=== PATIENT | male | born 1945 | race Caucasian/White ===

== ENCOUNTER 2022-04-03 12:38 | Inpatient (IN) ==
[2022-04-03] MEDS ORDERED: VANCOMYCIN INJ 1,500 MG in SODIUM CHLORIDE 0.9% 250 ML IV STA (15:45)
[2022-04-03 15:50] LABS: Basophils % 0.2 % (0.0-0.8); Eosinophils # 0.1 10*3/uL (0.0-0.87); Eosinophils % 1.2 % (0.00-10.9); Hematocrit 35.6 VOL% (42.0-52.0); Hemoglobin 11.2 GM/DL (14.0-18.0); Lymphocytes # 1.7 10*3/uL (1.4-4.0); Lymphocytes % 17.2 % (21.2-54.2); Mean Corpuscular HGB Conc 31.5 GM/DL (32-36); Mean Corpuscular Volume 96.7 FL (87-102); Mean Platelet Volume 9.8 FL (9.6-12.0); Monocytes # 0.7 10*3/uL (0.11-0.8); Monocytes % 6.5 % (1.7-12.7); Neutrophils % 73.9 % (38.7-73.9); Platelet Count 359 T/CUMM (130-400); Red Blood Count 3.68 MC/CUMM (3.8-5.5); Red Cell Distribution Width 14.7 % (9.3-17.3)
[2022-04-03 16:04] LABS: Albumin 2.5 G/DL (3.4-5.0); Bilirubin,Total 0.4 MG/DL (0.20-1.00); Calcium 8.7 MG/DL (8.5-10.1); Osmolality,Calculated 271.2 MOS/KG (273-304); Potassium 4.3 MMOL/L (3.5-5.1); Total Protein 7.4 G/DL (6.4-8.2)
[2022-04-03] MEDS ORDERED: guaiFENesin/DM ER 600-30 MG TABLET PO PRN (17:27)
[2022-04-03] MEDS ORDERED: GLUCAGON 1 MG VIAL IM PRN (17:27)
[2022-04-03] MEDS ORDERED: ACETAMINOPHEN 325 MG TABLET PO PRN (17:27)
[2022-04-03] MEDS ORDERED: hydrALAZINE 20 MG/1 ML VIAL IV PRN (17:27)
[2022-04-03] MEDS ORDERED: DOCUSATE SODIUM 100 MG CAPSULE PO PRN (17:27)
[2022-04-03] MEDS ORDERED: DEXTROSE 10% 250 ML BAG IV PRN (18:01)
[2022-04-03] MEDS: PIPERACILLIN/TAZOBACTAM 3,375 MG in SODIUM CHLORIDE 0.9% 100 ML IV SCH (21:58)
[2022-04-04] MEDS: VANCOMYCIN INJ 1,500 MG in SODIUM CHLORIDE 0.9% 500 ML IV SCH ×2 (03:08→20:11)
[2022-04-04 04:32] LABS: Basophils % 0.2 % (0.0-0.8); Eosinophils # 0.1 10*3/uL (0.0-0.87); Eosinophils % 1.5 % (0.00-10.9); Hematocrit 32.5 VOL% (42.0-52.0); Hemoglobin 10.1 GM/DL (14.0-18.0); Immature Granulocytes % 0.6 %; Immature Granulocytes Absolute 0.06 #; Lymphocytes # 1.9 10*3/uL (1.4-4.0); Lymphocytes % 20.1 % (21.2-54.2); Mean Corpuscular HGB Conc 31.1 GM/DL (32-36); Mean Corpuscular Volume 95.9 FL (87-102); Mean Platelet Volume 9.4 FL (9.6-12.0); Monocytes # 0.7 10*3/uL (0.11-0.8); Monocytes % 7.3 % (1.7-12.7); Neutrophils % 70.3 % (38.7-73.9); Platelet Count 297 T/CUMM (130-400); Red Blood Count 3.39 MC/CUMM (3.8-5.5); Red Cell Distribution Width 14.6 % (9.3-17.3); White Blood Count 9.3 T/CUMM (4-12)
[2022-04-04 05:01] LABS: Calcium 8.5 MG/DL (8.5-10.1); Osmolality,Calculated 268.2 MOS/KG (273-304); Risk Ratio 3.5; Thyroid Stimulating Hormone 0.884 uIU/ml (0.358-3.74); VLDL Cholesterol 25.6 MG/DL
[2022-04-04] MEDS: PANTOPRAZOLE 40 MG TABLET PO SCH (05:38)
[2022-04-04] MEDS: ALBUTEROL/IPRATROPIUM 3 ML NEB RESP TX PRN (08:00)
[2022-04-04] MEDS: PIPERACILLIN/TAZOBACTAM 3,375 MG in SODIUM CHLORIDE 0.9% 100 ML IV SCH ×3 (10:35→22:25)
[2022-04-04] MEDS ORDERED: GLUCAGON 1 MG VIAL IM PRN (13:46)
[2022-04-04] MEDS ORDERED: DEXTROSE 50% 25 GM/50 ML VIAL IV PRN (13:46)
[2022-04-04] MEDS ORDERED: NITROGLYCERIN SL 0.4 MG TABLET SL PRN (13:57)
[2022-04-04] MEDS ORDERED: FUROSEMIDE 40 MG TABLET PO PRN (13:57)
[2022-04-04] MEDS: GABAPENTIN 300 MG CAPSULE PO SCH ×2 (16:03→20:11)
[2022-04-04] MEDS: rOPINIRole 0.25 MG TABLET PO SCH ×2 (16:03→20:11)
[2022-04-04] MEDS: LORazepam 1 MG TABLET PO SCH ×2 (17:50→22:24)
[2022-04-04] MEDS: TAMSULOSIN 0.4 MG CAPSULE PO SCH (20:11)
[2022-04-05 05:29] LABS: Basophils % 0.2 % (0.0-0.8); Eosinophils # 0.1 10*3/uL (0.0-0.87); Eosinophils % 0.9 % (0.00-10.9); Hematocrit 30.4 VOL% (42.0-52.0); Hemoglobin 9.6 GM/DL (14.0-18.0); Immature Granulocytes % 0.7 %; Immature Granulocytes Absolute 0.06 #; Lymphocytes # 1.6 10*3/uL (1.4-4.0); Lymphocytes % 18.7 % (21.2-54.2); Mean Corpuscular HGB Conc 31.6 GM/DL (32-36); Mean Platelet Volume 9.6 FL (9.6-12.0); Monocytes # 0.7 10*3/uL (0.11-0.8); Monocytes % 7.5 % (1.7-12.7); Platelet Count 298 T/CUMM (130-400); Red Cell Distribution Width 14.6 % (9.3-17.3); White Blood Count 8.7 T/CUMM (4-12)
[2022-04-05 05:50] LABS: Calcium 8.2 MG/DL (8.5-10.1); Osmolality,Calculated 271.8 MOS/KG (273-304); Potassium 3.7 MMOL/L (3.5-5.1)
[2022-04-05] MEDS: PIPERACILLIN/TAZOBACTAM 3,375 MG in SODIUM CHLORIDE 0.9% 100 ML IV SCH ×3 (06:07→21:05)
[2022-04-05] MEDS: PANTOPRAZOLE 40 MG TABLET PO SCH (06:08)
[2022-04-05] MEDS ORDERED: propofoL 200 MG/20 ML VIAL IV ONE (09:20)
[2022-04-05] MEDS ORDERED: ETOMIDATE 40 MG/20 ML VIAL IV ONE (09:20)
[2022-04-05] MEDS ORDERED: LIDOCAINE 2% 5 ML VIAL ONE (09:20)
[2022-04-05] MEDS ORDERED: DEXAMETHASONE 4 MG/1 ML VIAL ONE (09:22)
[2022-04-05] MEDS ORDERED: ONDANSETRON 4 MG/2 ML VIAL ONE (09:22)
[2022-04-05] MEDS ORDERED: fentaNYL 100 MCG/2 ML VIAL ONE (09:26)
[2022-04-05] MEDS ORDERED: KETAMINE 500 MG/10 ML VIAL ONE (09:52)
[2022-04-05] MEDS ORDERED: LACTATED RINGERS 1,000 ML IV SCH (10:00)
[2022-04-05] MEDS ORDERED: ESMOLOL 100 MG/10 ML VIAL IV ONE (10:02)
[2022-04-05] MEDS: LORazepam 1 MG TABLET PO SCH ×4 (10:10→20:45)
[2022-04-05] MEDS: VANCOMYCIN INJ 1,500 MG in SODIUM CHLORIDE 0.9% 500 ML IV SCH ×2 (10:10→13:54)
[2022-04-05] MEDS: TAMSULOSIN 0.4 MG CAPSULE PO SCH ×2 (10:10→20:46)
[2022-04-05] MEDS: GABAPENTIN 300 MG CAPSULE PO SCH ×2 (10:10→20:45)
[2022-04-05] MEDS: rOPINIRole 0.25 MG TABLET PO SCH ×2 (10:10→20:45)
[2022-04-05] MEDS ORDERED: METOPROLOL TARTRATE 5 MG/5 ML VIAL IV ONE (10:11)
[2022-04-05] MEDS: METOPROLOL SUCCINATE XL 25 MG TABLET PO SCH ×2 (12:14→20:45)
[2022-04-05] MEDS ORDERED: rOPINIRole 0.25 MG TABLET PO ONE (13:47)
[2022-04-05] MEDS ORDERED: GLUCAGON 1 MG VIAL IM PRN (15:43)
[2022-04-05] MEDS ORDERED: DEXTROSE 10% 250 ML BAG IV PRN (15:46)
[2022-04-05] MEDS: APIXABAN 5 MG TABLET PO SCH (20:46)
[2022-04-05] MEDS: MENTHOL/ZINC OXIDE OINT 71 GM JAR TOP SCH (20:46)
[2022-04-06] MEDS: VANCOMYCIN INJ 1,500 MG in SODIUM CHLORIDE 0.9% 500 ML IV SCH (01:07)
[2022-04-06 05:31] LABS: Basophils % 0.2 % (0.0-0.8); Hematocrit 30.6 VOL% (42.0-52.0); Hemoglobin 9.7 GM/DL (14.0-18.0); Immature Granulocytes Absolute 0.06 #; Lymphocytes # 1.2 10*3/uL (1.4-4.0); Lymphocytes % 20.5 % (21.2-54.2); Mean Corpuscular HGB Conc 31.7 GM/DL (32-36); Mean Corpuscular Volume 96.5 FL (87-102); Mean Platelet Volume 9.8 FL (9.6-12.0); Monocytes # 0.4 10*3/uL (0.11-0.8); Monocytes % 5.9 % (1.7-12.7); Neutrophils % 72.4 % (38.7-73.9); Platelet Count 306 T/CUMM (130-400); Red Blood Count 3.17 MC/CUMM (3.8-5.5); Red Cell Distribution Width 14.6 % (9.3-17.3); White Blood Count 6.1 T/CUMM (4-12)
[2022-04-06 05:45] LABS: Calcium 8.4 MG/DL (8.5-10.1); Osmolality,Calculated 275.7 MOS/KG (273-304); Potassium 4.3 MMOL/L (3.5-5.1)
[2022-04-06] MEDS: PANTOPRAZOLE 40 MG TABLET PO SCH (06:08)
[2022-04-06] MEDS: PIPERACILLIN/TAZOBACTAM 3,375 MG in SODIUM CHLORIDE 0.9% 100 ML IV SCH (06:10)
[2022-04-06] MEDS: ALBUTEROL/IPRATROPIUM 3 ML NEB RESP TX PRN (07:55)
[2022-04-06] MEDS: GABAPENTIN 300 MG CAPSULE PO SCH (08:27)
[2022-04-06] MEDS: TAMSULOSIN 0.4 MG CAPSULE PO SCH (08:27)
[2022-04-06] MEDS: rOPINIRole 0.25 MG TABLET PO SCH (08:27)
[2022-04-06] MEDS: METOPROLOL SUCCINATE XL 25 MG TABLET PO SCH (08:27)
[2022-04-06] MEDS: LORazepam 1 MG TABLET PO SCH ×3 (08:27→16:30)
[2022-04-06] MEDS: MENTHOL/ZINC OXIDE OINT 71 GM JAR TOP SCH (08:28)
[2022-04-06] MEDS: APIXABAN 5 MG TABLET PO SCH (08:28)
[2022-04-06] MEDS ORDERED: SODIUM HYPOCHLORITE 0.25% IRRIG 473 ML BOTTLE TOP SCH (09:30)
[2022-04-06 16:50] VITALS: BP 109/79
== END 2022-04-06 16:52 | disposition home health service (06) | DRG 464 ==
LOC: N.ED 12:38 → SUATTDRO 17:27 → N.5E 17:27 → N.TELES 04-05 11:06
PROVIDERS: ADMIT Emergency Medicine; ATTEND Internal Medicine

== ENCOUNTER 2022-08-06 13:46 | Inpatient (IN) ==
[2022-08-06 16:13] LABS: Basophils % 0.1 % (0.0-0.8); Hematocrit 44.7 VOL% (42.0-52.0); Hemoglobin 14.3 GM/DL (14.0-18.0); Immature Granulocytes % 0.3 %; Immature Granulocytes Absolute 0.02 #; Lymphocytes % 26.4 % (21.2-54.2); Mean Corpuscular Volume 92.4 FL (87-102); Mean Platelet Volume 10.9 FL (9.6-12.0); Monocytes # 0.6 10*3/uL (0.11-0.8); Monocytes % 7.4 % (1.7-12.7); Neutrophils % 65.8 % (38.7-73.9); Platelet Count 152 T/CUMM (130-400); Red Blood Count 4.84 MC/CUMM (3.8-5.5); Red Cell Distribution Width 14.3 % (9.3-17.3); White Blood Count 7.6 T/CUMM (4-12)
[2022-08-06] MEDS ORDERED: PIPERACILLIN/TAZOBACTAM 3,375 MG in SODIUM CHLORIDE 0.9% 100 ML IV STA (16:31)
[2022-08-06] MEDS ORDERED: SODIUM CHLORIDE 0.9% 1,000 ML IV STA (16:31)
[2022-08-06 16:35] LABS: Albumin 2.8 G/DL (3.4-5.0); Bilirubin,Total 0.7 MG/DL (0.20-1.00); Calcium 8.1 MG/DL (8.5-10.1); Osmolality,Calculated 270.2 MOS/KG (273-304); Potassium 3.6 MMOL/L (3.5-5.1); Total Protein 7.1 G/DL (6.4-8.2)
[2022-08-06 16:45] LABS: INR 1.1; PT Patient Result 12.2 SECS (10.1-12.1); Partial Thromboplastin Time 31.4 SECS (23.7-32.9)
[2022-08-06] MEDS ORDERED: ACETAMINOPHEN 325 MG TABLET PO PRN (19:34)
[2022-08-06] MEDS ORDERED: ONDANSETRON 4 MG/2 ML VIAL IV PRN (19:34)
[2022-08-06] MEDS ORDERED: GLUCAGON 1 MG VIAL IM PRN (19:34)
[2022-08-06] MEDS ORDERED: DEXTROSE 10% 250 ML BAG IV PRN (19:34)
[2022-08-06] MEDS ORDERED: VANCOMYCIN INJ 1,000 MG in SODIUM CHLORIDE 0.9% 250 ML IV STA (19:37)
[2022-08-06] MEDS ORDERED: ENOXAPARIN 40 MG/0.4 ML SYRINGE SUBCUT SCH (21:00)
[2022-08-06] MEDS: SODIUM CHLORIDE 0.9% 1,000 ML IV SCH (23:16)
[2022-08-06] MEDS: TAMSULOSIN 0.4 MG CAPSULE PO SCH (23:16)
[2022-08-06] MEDS: rOPINIRole 0.25 MG TABLET PO SCH (23:16)
[2022-08-06] MEDS: MEROPENEM 500 MG in SODIUM CHLORIDE 0.9% 100 ML IV SCH (23:16)
[2022-08-07] MEDS: LORazepam 1 MG TABLET PO PRN (03:28)
[2022-08-07] MEDS: MEROPENEM 500 MG in SODIUM CHLORIDE 0.9% 100 ML IV SCH ×2 (04:28→09:25)
[2022-08-07 05:56] LABS: Hematocrit 41.8 VOL% (42.0-52.0); Hemoglobin 13.3 GM/DL (14.0-18.0); Immature Granulocytes % 0.3 %; Immature Granulocytes Absolute 0.02 #; Mean Corpuscular HGB Conc 31.8 GM/DL (32-36); Mean Corpuscular Volume 92.9 FL (87-102); Mean Platelet Volume 11.4 FL (9.6-12.0); Monocytes # 0.4 10*3/uL (0.11-0.8); Monocytes % 6.2 % (1.7-12.7); Neutrophils % 61.5 % (38.7-73.9); Platelet Count 129 T/CUMM (130-400); Red Cell Distribution Width 14.1 % (9.3-17.3); White Blood Count 6.1 T/CUMM (4-12)
[2022-08-07 06:23] LABS: Albumin 2.5 G/DL (3.4-5.0); Bilirubin,Total 0.6 MG/DL (0.20-1.00); Calcium 8.3 MG/DL (8.5-10.1); Potassium 3.7 MMOL/L (3.5-5.1); Risk Ratio 4.89; Thyroid Stimulating Hormone 1.03 uIU/ml (0.358-3.74); Total Protein 6.7 G/DL (6.4-8.2); VLDL Cholesterol 26.4 MG/DL
[2022-08-07] MEDS: rOPINIRole 0.25 MG TABLET PO SCH ×2 (09:25→20:34)
[2022-08-07] MEDS: PANTOPRAZOLE 40 MG TABLET PO SCH (09:25)
[2022-08-07] MEDS: TAMSULOSIN 0.4 MG CAPSULE PO SCH ×2 (09:25→20:34)
[2022-08-07] MEDS ORDERED: LIDOCAINE 1% 5 ML VIAL ONE (11:24)
[2022-08-07] MEDS ORDERED: LIDOCAINE 2% 5 ML VIAL ONE (11:26)
[2022-08-07] MEDS ORDERED: propofoL 200 MG/20 ML VIAL IV ONE (11:26)
[2022-08-07] MEDS ORDERED: fentaNYL 100 MCG/2 ML VIAL ONE (11:26)
[2022-08-07] MEDS ORDERED: LACTATED RINGERS 1,000 ML IV SCH (12:00)
[2022-08-07] MEDS ORDERED: PHENYLEPHRINE 1 MG/10 ML SYRINGE IV ONE (12:32)
[2022-08-07] MEDS ORDERED: DEXMEDETOMIDINE 200 MCG/2 ML VIAL ONE (12:32)
[2022-08-07] MEDS: CEFEPIME 1,000 MG in SODIUM CHLORIDE 0.9% 100 ML IV SCH ×2 (14:49→22:01)
[2022-08-07] MEDS: SODIUM CHLORIDE 0.9% 1,000 ML IV SCH ×2 (14:49→16:19)
[2022-08-07] MEDS: VANCOMYCIN INJ 1,250 MG in SODIUM CHLORIDE 0.9% 250 ML IV SCH (16:21)
[2022-08-08] MEDS: CEFEPIME 1,000 MG in SODIUM CHLORIDE 0.9% 100 ML IV SCH ×4 (03:05→20:37)
[2022-08-08] MEDS: VANCOMYCIN INJ 1,250 MG in SODIUM CHLORIDE 0.9% 250 ML IV SCH (04:40)
[2022-08-08 05:15] LABS: Basophils % 0.2 % (0.0-0.8); Hemoglobin 12.5 GM/DL (14.0-18.0); Immature Granulocytes % 0.2 %; Immature Granulocytes Absolute 0.01 #; Lymphocytes # 1.9 10*3/uL (1.4-4.0); Lymphocytes % 34.8 % (21.2-54.2); Mean Corpuscular HGB Conc 32.1 GM/DL (32-36); Mean Corpuscular Volume 93.8 FL (87-102); Mean Platelet Volume 11.6 FL (9.6-12.0); Monocytes # 0.4 10*3/uL (0.11-0.8); Monocytes % 6.5 % (1.7-12.7); Neutrophils % 58.3 % (38.7-73.9); Platelet Count 117 T/CUMM (130-400); Red Blood Count 4.16 MC/CUMM (3.8-5.5); Red Cell Distribution Width 14.2 % (9.3-17.3); White Blood Count 5.4 T/CUMM (4-12)
[2022-08-08] MEDS: ZINC OXIDE PASTE 113 GM TUBE TOP SCH ×3 (05:26→20:38)
[2022-08-08 05:31] LABS: Calcium 7.7 MG/DL (8.5-10.1); Potassium 3.8 MMOL/L (3.5-5.1)
[2022-08-08] MEDS: SODIUM CHLORIDE 0.9% 1,000 ML IV SCH ×2 (08:52→12:20)
[2022-08-08] MEDS: TAMSULOSIN 0.4 MG CAPSULE PO SCH ×2 (08:53→20:36)
[2022-08-08] MEDS: PANTOPRAZOLE 40 MG TABLET PO SCH (08:53)
[2022-08-08] MEDS: rOPINIRole 0.25 MG TABLET PO SCH ×2 (08:53→20:36)
[2022-08-08] MEDS: LORazepam 1 MG TABLET PO PRN ×2 (12:28→20:36)
[2022-08-09] MEDS: SODIUM CHLORIDE 0.9% 1,000 ML IV SCH ×4 (02:30→19:29)
[2022-08-09] MEDS: CEFEPIME 1,000 MG in SODIUM CHLORIDE 0.9% 100 ML IV SCH ×4 (02:30→21:13)
[2022-08-09 06:16] LABS: Basophils % 0.2 % (0.0-0.8); Eosinophils % 0.2 % (0.00-10.9); Hematocrit 38.7 VOL% (42.0-52.0); Hemoglobin 12.5 GM/DL (14.0-18.0); Immature Granulocytes % 0.6 %; Immature Granulocytes Absolute 0.03 #; Lymphocytes # 1.7 10*3/uL (1.4-4.0); Mean Corpuscular HGB Conc 32.3 GM/DL (32-36); Mean Corpuscular Volume 91.7 FL (87-102); Mean Platelet Volume 11.7 FL (9.6-12.0); Monocytes # 0.4 10*3/uL (0.11-0.8); Monocytes % 8.1 % (1.7-12.7); Neutrophils % 58.9 % (38.7-73.9); Platelet Count 132 T/CUMM (130-400); Red Blood Count 4.22 MC/CUMM (3.8-5.5); White Blood Count 5.2 T/CUMM (4-12)
[2022-08-09 06:31] LABS: Calcium 8.3 MG/DL (8.5-10.1); Osmolality,Calculated 274.5 MOS/KG (273-304); Potassium 3.5 MMOL/L (3.5-5.1)
[2022-08-09] MEDS: PANTOPRAZOLE 40 MG TABLET PO SCH (09:30)
[2022-08-09] MEDS: rOPINIRole 0.25 MG TABLET PO SCH ×2 (09:30→21:13)
[2022-08-09] MEDS: TAMSULOSIN 0.4 MG CAPSULE PO SCH ×2 (09:30→21:13)
[2022-08-09] MEDS: ZINC OXIDE PASTE 113 GM TUBE TOP SCH ×2 (09:30→21:14)
[2022-08-09] MEDS: LORazepam 1 MG TABLET PO PRN ×2 (09:31→21:13)
[2022-08-09] MEDS: ALBUTEROL/IPRATROPIUM 3 ML NEB RESP TX PRN (11:34)
[2022-08-09] MEDS: METOPROLOL SUCCINATE XL 25 MG TABLET PO SCH (16:08)
[2022-08-09] MEDS: APIXABAN 5 MG TABLET PO SCH (21:13)
[2022-08-10] MEDS: CEFEPIME 1,000 MG in SODIUM CHLORIDE 0.9% 100 ML IV SCH ×3 (03:59→14:45)
[2022-08-10 05:59] LABS: Basophils % 0.2 % (0.0-0.8); Eosinophils % 0.4 % (0.00-10.9); Hematocrit 37.2 VOL% (42.0-52.0); Hemoglobin 11.9 GM/DL (14.0-18.0); Immature Granulocytes % 0.9 %; Immature Granulocytes Absolute 0.05 #; Lymphocytes # 1.4 10*3/uL (1.4-4.0); Lymphocytes % 26.3 % (21.2-54.2); Mean Corpuscular Volume 92.3 FL (87-102); Monocytes # 0.6 10*3/uL (0.11-0.8); Monocytes % 10.4 % (1.7-12.7); Neutrophils % 61.8 % (38.7-73.9); Platelet Count 158 T/CUMM (130-400); Red Blood Count 4.03 MC/CUMM (3.8-5.5); Red Cell Distribution Width 13.9 % (9.3-17.3); White Blood Count 5.5 T/CUMM (4-12)
[2022-08-10 06:25] LABS: Albumin 2.1 G/DL (3.4-5.0); Bilirubin,Total 1.1 MG/DL (0.20-1.00); Osmolality,Calculated 272.7 MOS/KG (273-304); Potassium 3.1 MMOL/L (3.5-5.1); Thyroid Stimulating Hormone 0.948 uIU/ml (0.358-3.74); Total Protein 5.9 G/DL (6.4-8.2)
[2022-08-10] MEDS: rOPINIRole 0.25 MG TABLET PO SCH (08:53)
[2022-08-10] MEDS: APIXABAN 5 MG TABLET PO SCH (08:53)
[2022-08-10] MEDS: METOPROLOL SUCCINATE XL 25 MG TABLET PO SCH (08:53)
[2022-08-10] MEDS: PANTOPRAZOLE 40 MG TABLET PO SCH (08:53)
[2022-08-10] MEDS: ZINC OXIDE PASTE 113 GM TUBE TOP SCH (08:55)
[2022-08-10] MEDS: TAMSULOSIN 0.4 MG CAPSULE PO SCH (08:56)
[2022-08-10 11:21] VITALS: BP 114/80
[2022-08-10] MEDS: ALBUTEROL/IPRATROPIUM 3 ML NEB RESP TX PRN (11:50)
[2022-08-10] MEDS: SODIUM CHLORIDE 0.9% 1,000 ML IV SCH ×2 (14:34→17:08)
== END 2022-08-10 17:13 | DRG 474 ==
LOC: EDUNIT# → EDBD → N.ED 13:46 → N.EDINP 19:33 → N.3E 20:31
PROVIDERS: ADMIT Internal Medicine; ATTEND Internal Medicine

== ENCOUNTER 2022-09-25 10:55 | Inpatient (IN) ==
[2022-09-25] MEDS ORDERED: SODIUM CHLORIDE 0.9% 1,000 ML IV STA ×2 (11:19→13:17)
[2022-09-25 11:27] LABS: Basophils % 0.3 % (0.0-0.8); Eosinophils # 0.2 10*3/uL (0.0-0.87); Eosinophils % 2.3 % (0.00-10.9); Hematocrit 34.1 VOL% (42.0-52.0); Hemoglobin 10.3 GM/DL (14.0-18.0); Immature Granulocytes % 0.5 %; Immature Granulocytes Absolute 0.05 #; Lymphocytes # 2.5 10*3/uL (1.4-4.0); Mean Corpuscular HGB Conc 30.2 GM/DL (32-36); Mean Corpuscular Volume 95.5 FL (87-102); Mean Platelet Volume 9.9 FL (9.6-12.0); Monocytes # 0.7 10*3/uL (0.11-0.8); Monocytes % 7.9 % (1.7-12.7); Platelet Count 363 T/CUMM (130-400); Red Blood Count 3.57 MC/CUMM (3.8-5.5); Red Cell Distribution Width 16.8 % (9.3-17.3); White Blood Count 9.4 T/CUMM (4-12)
[2022-09-25 11:33] LABS: INR 1.2; PT Patient Result 12.9 SECS (10.1-12.1)
[2022-09-25 11:40] LABS: Albumin 2.4 G/DL (3.4-5.0); Bilirubin,Total 0.6 MG/DL (0.20-1.00); Calcium 8.5 MG/DL (8.5-10.1); Osmolality,Calculated 273.8 MOS/KG (273-304); Potassium 4.3 MMOL/L (3.5-5.1); Total Protein 7.1 G/DL (6.4-8.2)
[2022-09-25] MEDS ORDERED: PIPERACILLIN/TAZOBACTAM 3,375 MG in SODIUM CHLORIDE 0.9% 100 ML IV STA (11:51)
[2022-09-25] MEDS ORDERED: VANCOMYCIN INJ 1,000 MG in SODIUM CHLORIDE 0.9% 250 ML IV STA (11:51)
[2022-09-25] MEDS ORDERED: ONDANSETRON 4 MG/2 ML VIAL IV PRN (13:18)
[2022-09-25] MEDS ORDERED: KETAMINE 500 MG/10 ML VIAL ONE ×2 (13:22→15:03)
[2022-09-25] MEDS ORDERED: ALBUTEROL/IPRATROPIUM 3 ML NEB RESP TX PRN (13:29)
[2022-09-25] MEDS ORDERED: SODIUM CHLORIDE 0.9% 500 ML IV ONE ×2 (14:49→18:18)
[2022-09-25] MEDS ORDERED: MIDAZOLAM 2 MG/2 ML VIAL ONE (15:03)
[2022-09-25] MEDS ORDERED: propofoL 200 MG/20 ML VIAL IV ONE (15:03)
[2022-09-25] MEDS ORDERED: fentaNYL 100 MCG/2 ML VIAL ONE (15:04)
[2022-09-25] MEDS ORDERED: PHENYLEPHRINE DRIP 20 MG/250 ML PREMIX IV ONE (15:10)
[2022-09-25] MEDS ORDERED: ONDANSETRON 4 MG/2 ML VIAL ONE (15:11)
[2022-09-25] MEDS ORDERED: SEVOFLURANE 1 UNIT/15 MINUTE INH ONE ×2 (15:11→15:58)
[2022-09-25 15:12] LABS: % Iron Saturation 9.1 % (18-50)
[2022-09-25] MEDS ORDERED: SUCCINYLCHOLINE 200 MG/10 ML VIAL ONE (15:12)
[2022-09-25] MEDS ORDERED: ROCURONIUM 50 MG/5 ML VIAL IV ONE (15:12)
[2022-09-25 15:24] LABS: Folate 3.72 NG/ML (5.38-24.0)
[2022-09-25] MEDS ORDERED: ePHEDrine 50 MG/ML VIAL ONE (15:37)
[2022-09-25] MEDS ORDERED: PHENYLEPHRINE 1 MG/10 ML SYRINGE IV ONE (15:39)
[2022-09-25] MEDS ORDERED: ALBUTEROL INHALER 18 GM INH ONE (15:41)
[2022-09-25] MEDS: GABAPENTIN 300 MG CAPSULE PO SCH ×2 (15:57→21:10)
[2022-09-25] MEDS: CYPROHEPTADINE 4 MG TABLET PO SCH ×2 (15:58→21:31)
[2022-09-25] MEDS ORDERED: SODIUM CHLORIDE 0.9% 1,000 ML IV ONE (15:58)
[2022-09-25] MEDS: NICOTINE 21 MG/24 HR PATCH TRANSDERM SCH (17:48)
[2022-09-25 17:53] LABS: Basophils % 0.4 % (0.0-0.8); Eosinophils # 0.2 10*3/uL (0.0-0.87); Eosinophils % 2.7 % (0.00-10.9); Hematocrit 30.3 VOL% (42.0-52.0); Hemoglobin 9.2 GM/DL (14.0-18.0); Immature Granulocytes % 0.5 %; Immature Granulocytes Absolute 0.04 #; Lymphocytes # 1.7 10*3/uL (1.4-4.0); Lymphocytes % 20.4 % (21.2-54.2); Mean Corpuscular HGB Conc 30.4 GM/DL (32-36); Mean Corpuscular Volume 94.7 FL (87-102); Mean Platelet Volume 9.6 FL (9.6-12.0); Monocytes # 0.8 10*3/uL (0.11-0.8); Monocytes % 9.6 % (1.7-12.7); Neutrophils % 66.4 % (38.7-73.9); Platelet Count 303 T/CUMM (130-400); Red Cell Distribution Width 16.7 % (9.3-17.3); White Blood Count 8.2 T/CUMM (4-12)
[2022-09-25] MEDS ORDERED: METOPROLOL SUCCINATE XL 25 MG TABLET PO SCH (21:00)
[2022-09-25] MEDS: PIPERACILLIN/TAZOBACTAM 3,375 MG in SODIUM CHLORIDE 0.9% 100 ML IV SCH (21:09)
[2022-09-25] MEDS: TAMSULOSIN 0.4 MG CAPSULE PO SCH (21:10)
[2022-09-25] MEDS: DOCUSATE SODIUM 100 MG CAPSULE PO SCH (21:10)
[2022-09-25] MEDS: rOPINIRole 0.25 MG TABLET PO SCH (21:10)
[2022-09-25] MEDS: NOREPINEPHRINE 8 MG in SODIUM CHLORIDE 0.9% 242 ML IV PRN (22:03)
[2022-09-25] MEDS: ALBUTEROL/IPRATROPIUM 3 ML NEB RESP TX SCH (23:00)
[2022-09-26] MEDS ORDERED: VANCOMYCIN INJ 1,000 MG in SODIUM CHLORIDE 0.9% 250 ML IV SCH (01:00)
[2022-09-26] MEDS: ALBUTEROL/IPRATROPIUM 3 ML NEB RESP TX SCH ×7 (03:10→23:49)
[2022-09-26 04:35] LABS: Basophils % 0.4 % (0.0-0.8); Eosinophils # 0.2 10*3/uL (0.0-0.87); Eosinophils % 2.8 % (0.00-10.9); Hematocrit 33.6 VOL% (42.0-52.0); Hemoglobin 10.1 GM/DL (14.0-18.0); Immature Granulocytes % 0.6 %; Immature Granulocytes Absolute 0.05 #; Lymphocytes # 2.4 10*3/uL (1.4-4.0); Lymphocytes % 30.3 % (21.2-54.2); Mean Corpuscular HGB Conc 30.1 GM/DL (32-36); Mean Corpuscular Volume 95.5 FL (87-102); Mean Platelet Volume 9.8 FL (9.6-12.0); Monocytes # 0.6 10*3/uL (0.11-0.8); Monocytes % 7.2 % (1.7-12.7); Neutrophils % 58.7 % (38.7-73.9); Platelet Count 353 T/CUMM (130-400); Red Blood Count 3.52 MC/CUMM (3.8-5.5); Red Cell Distribution Width 16.9 % (9.3-17.3); White Blood Count 7.9 T/CUMM (4-12)
[2022-09-26 04:54] LABS: Albumin 2.2 G/DL (3.4-5.0); Bilirubin,Total 0.5 MG/DL (0.20-1.00); Potassium 4.1 MMOL/L (3.5-5.1); Total Protein 5.9 G/DL (6.4-8.2)
[2022-09-26 04:57] LABS: Risk Ratio 4.04; VLDL Cholesterol 20.2 MG/DL
[2022-09-26] MEDS: PIPERACILLIN/TAZOBACTAM 3,375 MG in SODIUM CHLORIDE 0.9% 100 ML IV SCH (06:00)
[2022-09-26] MEDS ORDERED: SODIUM CHLORIDE 0.9% 1,000 ML IV SCH (08:30)
[2022-09-26] MEDS: SODIUM CHLORIDE 0.9% 500 ML IV SCH ×2 (08:34→09:11)
[2022-09-26] MEDS: CYPROHEPTADINE 4 MG TABLET PO SCH ×3 (08:35→20:55)
[2022-09-26] MEDS: rOPINIRole 0.25 MG TABLET PO SCH ×2 (08:35→20:55)
[2022-09-26] MEDS: CHOLECALCIFEROL 5,000 UNIT TABLET PO SCH (08:35)
[2022-09-26] MEDS: NICOTINE 21 MG/24 HR PATCH TRANSDERM SCH ×2 (08:35→09:11)
[2022-09-26] MEDS: CITALOPRAM 20 MG TABLET PO SCH (08:36)
[2022-09-26] MEDS: GABAPENTIN 300 MG CAPSULE PO SCH ×3 (08:36→20:55)
[2022-09-26] MEDS: DOCUSATE SODIUM 100 MG CAPSULE PO SCH ×2 (08:36→20:55)
[2022-09-26] MEDS: TAMSULOSIN 0.4 MG CAPSULE PO SCH ×2 (08:36→20:55)
[2022-09-26] MEDS: PANTOPRAZOLE 40 MG TABLET PO SCH (08:36)
[2022-09-26] MEDS: SODIUM CHLORIDE 0.9% 1,000 ML IV SCH ×3 (08:37→22:47)
[2022-09-26] MEDS ORDERED: FERROUS SULFATE 325 MG TABLET PO SCH (09:00)
[2022-09-26] MEDS ORDERED: lisinopriL 10 MG TABLET PO SCH (09:00)
[2022-09-26] MEDS ORDERED: FOLIC ACID INJ 1 MG in SYRINGE 1 EACH IV SCH (09:00)
[2022-09-26] MEDS ORDERED: FOLIC ACID 1 MG TABLET PO SCH (09:00)
[2022-09-26] MEDS: cefTRIAXone 1,000 MG in SODIUM CHLORIDE 0.9% 100 ML IV SCH (09:22)
[2022-09-26 10:01] LABS: Bilirubin,Urine Negative (Negative); Blood, Urine Small mg/dL (Negative); Glucose,Urine (UA) Negative (Negative); Ketones,Urine Negative (Negative); Mucus,Urine Few /LPF (Occasional); Nitrite,Urine Negative (Negative); Protein,Urine 30 mg/dL (Negative); RBC,Urine 66 /HPF (0-4); Squamous Epithelial Cell,Urine Many /HPF (0-10); Urine Appearance CLOUDY (Clear); Urine Color Amber (Yellow); Urine Specific Gravity 1.013 (1.001-1.035); Urine Urobilinogen < 2.0 eU/dL (<2.0)
[2022-09-26] MEDS: SODIUM HYPOCHLORITE 0.25% IRRIG 473 ML BOTTLE TOP SCH (11:50)
[2022-09-26] MEDS: MORPHINE 2 MG/1 ML SYRINGE IV PRN ×2 (12:47→18:02)
[2022-09-26] MEDS ORDERED: ZINC OXIDE PASTE 113 GM TUBE TOP PRN (14:00)
[2022-09-26] MEDS: FOLIC ACID 1 MG TABLET PO SCH (20:55)
[2022-09-26] MEDS: FERROUS SULFATE 325 MG TABLET PO SCH (20:55)
[2022-09-26] MEDS: NOREPINEPHRINE 8 MG in SODIUM CHLORIDE 0.9% 242 ML IV PRN (22:46)
[2022-09-27] MEDS: ALBUTEROL/IPRATROPIUM 3 ML NEB RESP TX SCH ×5 (03:12→19:35)
[2022-09-27] MEDS: MORPHINE 2 MG/1 ML SYRINGE IV PRN (04:01)
[2022-09-27 04:02] LABS: Basophils % 0.4 % (0.0-0.8); Eosinophils # 0.3 10*3/uL (0.0-0.87); Eosinophils % 3.2 % (0.00-10.9); Hematocrit 29.6 VOL% (42.0-52.0); Hemoglobin 8.9 GM/DL (14.0-18.0); Immature Granulocytes % 0.5 %; Immature Granulocytes Absolute 0.04 #; Lymphocytes # 2.1 10*3/uL (1.4-4.0); Lymphocytes % 25.4 % (21.2-54.2); Mean Corpuscular HGB Conc 30.1 GM/DL (32-36); Mean Corpuscular Volume 96.1 FL (87-102); Monocytes # 0.5 10*3/uL (0.11-0.8); Monocytes % 6.3 % (1.7-12.7); Neutrophils % 64.2 % (38.7-73.9); Platelet Count 272 T/CUMM (130-400); Red Blood Count 3.08 MC/CUMM (3.8-5.5); Red Cell Distribution Width 16.7 % (9.3-17.3); White Blood Count 8.1 T/CUMM (4-12)
[2022-09-27 04:22] LABS: Alanine Aminotransferase 9 U/L (16-61); Albumin 1.8 G/DL (3.4-5.0); Alkaline Phosphatase 53 U/L (45-117); Aspartate Amino Transferase 6 U/L (0-37); Bilirubin,Total < 0.39 MG/DL (0.20-1.00); Blood Urea Nitrogen 8 MG/DL (7-18); Calcium 7.5 MG/DL (8.5-10.1); Carbon Dioxide 27 MMOL/L (21-32); Chloride 109 MMOL/L (98-107); Glucose 119 MG/DL (74-106); Osmolality,Calculated 281.1 MOS/KG (273-304); Potassium 3.6 MMOL/L (3.5-5.1); Sodium 142 MMOL/L (136-145); Total Protein 5.9 G/DL (6.4-8.2)
[2022-09-27] MEDS: SODIUM CHLORIDE 0.9% 1,000 ML IV SCH (07:09)
[2022-09-27] MEDS ORDERED: MAGNESIUM SULF RIDER 4 GM/100 ML PREMIX IV PRN (07:35)
[2022-09-27] MEDS ORDERED: MAGNESIUM SULF RIDER 2 GM/50 ML PREMIX IV PRN (07:35)
[2022-09-27] MEDS ORDERED: KETAMINE 500 MG/10 ML VIAL ONE (07:52)
[2022-09-27] MEDS ORDERED: PHENYLEPHRINE 10 MG/1 ML VIAL IV ONE (07:52)
[2022-09-27] MEDS ORDERED: SODIUM CHLORIDE 0.9% 250 ML IV ONE (07:55)
[2022-09-27] MEDS ORDERED: SUCCINYLCHOLINE 200 MG/10 ML VIAL ONE (07:55)
[2022-09-27] MEDS ORDERED: LIDOCAINE 2% 5 ML VIAL ONE (07:55)
[2022-09-27] MEDS ORDERED: ETOMIDATE 40 MG/20 ML VIAL IV ONE (07:55)
[2022-09-27] MEDS ORDERED: propofoL 200 MG/20 ML VIAL IV ONE (07:55)
[2022-09-27] MEDS ORDERED: ONDANSETRON 4 MG/2 ML VIAL ONE (08:30)
[2022-09-27] MEDS ORDERED: fentaNYL 100 MCG/2 ML VIAL ONE ×2 (08:34→09:04)
[2022-09-27] MEDS ORDERED: SEVOFLURANE 1 UNIT/15 MINUTE INH ONE (09:09)
[2022-09-27] MEDS ORDERED: SODIUM CHLORIDE 0.9% 1,000 ML IV ONE (09:09)
[2022-09-27 09:53] LABS: Basophils % 0.3 % (0.0-0.8); Eosinophils # 0.2 10*3/uL (0.0-0.87); Hematocrit 29.1 VOL% (42.0-52.0); Hemoglobin 8.8 GM/DL (14.0-18.0); Immature Granulocytes % 0.5 %; Immature Granulocytes Absolute 0.04 #; Lymphocytes % 25.8 % (21.2-54.2); Mean Corpuscular HGB Conc 30.2 GM/DL (32-36); Mean Corpuscular Volume 95.4 FL (87-102); Mean Platelet Volume 9.1 FL (9.6-12.0); Monocytes # 0.5 10*3/uL (0.11-0.8); Monocytes % 6.1 % (1.7-12.7); Neutrophils % 64.3 % (38.7-73.9); Platelet Count 276 T/CUMM (130-400); Red Blood Count 3.05 MC/CUMM (3.8-5.5); Red Cell Distribution Width 16.8 % (9.3-17.3); White Blood Count 7.6 T/CUMM (4-12)
[2022-09-27] MEDS: cefTRIAXone 1,000 MG in SODIUM CHLORIDE 0.9% 100 ML IV SCH (10:05)
[2022-09-27] MEDS ORDERED: FUROSEMIDE 20 MG/2 ML VIAL IV ONE (12:50)
[2022-09-27] MEDS: CHOLECALCIFEROL 5,000 UNIT TABLET PO SCH (13:20)
[2022-09-27] MEDS: TAMSULOSIN 0.4 MG CAPSULE PO SCH ×3 (13:20→22:11)
[2022-09-27] MEDS: PANTOPRAZOLE 40 MG TABLET PO SCH (13:20)
[2022-09-27] MEDS: CYPROHEPTADINE 4 MG TABLET PO SCH ×4 (13:20→22:11)
[2022-09-27] MEDS: rOPINIRole 0.25 MG TABLET PO SCH ×3 (13:20→22:11)
[2022-09-27] MEDS: CITALOPRAM 20 MG TABLET PO SCH (13:20)
[2022-09-27] MEDS: FERROUS SULFATE 325 MG TABLET PO SCH ×3 (13:20→22:11)
[2022-09-27] MEDS: DOCUSATE SODIUM 100 MG CAPSULE PO SCH ×3 (13:20→22:11)
[2022-09-27] MEDS: FOLIC ACID 1 MG TABLET PO SCH ×3 (13:20→22:11)
[2022-09-27] MEDS: GABAPENTIN 300 MG CAPSULE PO SCH ×4 (13:20→22:11)
[2022-09-27] MEDS: methylPREDNISolone SOD SUC 40 MG/1 ML VIAL IV SCH ×2 (13:24→21:24)
[2022-09-27] MEDS: ACETAMINOPHEN 325 MG TABLET PO PRN (13:25)
[2022-09-27] MEDS: SODIUM HYPOCHLORITE 0.25% IRRIG 473 ML BOTTLE TOP SCH (13:43)
[2022-09-27] MEDS: LORazepam 1 MG TABLET PO PRN (14:11)
[2022-09-28] MEDS: ALBUTEROL/IPRATROPIUM 3 ML NEB RESP TX SCH ×7 (00:20→23:19)
[2022-09-28 04:42] LABS: Basophils % 0.2 % (0.0-0.8); Hematocrit 31.9 VOL% (42.0-52.0); Hemoglobin 9.9 GM/DL (14.0-18.0); Immature Granulocytes % 0.8 %; Immature Granulocytes Absolute 0.05 #; Lymphocytes # 0.7 10*3/uL (1.4-4.0); Lymphocytes % 10.9 % (21.2-54.2); Mean Corpuscular Volume 93.8 FL (87-102); Mean Platelet Volume 9.7 FL (9.6-12.0); Monocytes # 0.1 10*3/uL (0.11-0.8); Monocytes % 1.7 % (1.7-12.7); Neutrophils % 86.4 % (38.7-73.9); Platelet Count 318 T/CUMM (130-400); Red Cell Distribution Width 16.6 % (9.3-17.3); White Blood Count 6.6 T/CUMM (4-12)
[2022-09-28] MEDS: methylPREDNISolone SOD SUC 40 MG/1 ML VIAL IV SCH ×3 (04:42→21:46)
[2022-09-28 05:04] LABS: Bilirubin,Total 0.5 MG/DL (0.20-1.00); Calcium 8.3 MG/DL (8.5-10.1); Osmolality,Calculated 280.4 MOS/KG (273-304); Phosphorous 3.5 MG/DL (2.5-4.9); Potassium 4.3 MMOL/L (3.5-5.1); Total Protein 6.7 G/DL (6.4-8.2)
[2022-09-28] MEDS: CITALOPRAM 20 MG TABLET PO SCH (08:25)
[2022-09-28] MEDS: FERROUS SULFATE 325 MG TABLET PO SCH ×2 (08:26→21:47)
[2022-09-28] MEDS: DOCUSATE SODIUM 100 MG CAPSULE PO SCH ×2 (08:26→21:46)
[2022-09-28] MEDS: TAMSULOSIN 0.4 MG CAPSULE PO SCH ×2 (08:28→21:46)
[2022-09-28] MEDS: PANTOPRAZOLE 40 MG TABLET PO SCH (08:28)
[2022-09-28] MEDS: rOPINIRole 0.25 MG TABLET PO SCH ×2 (08:28→21:47)
[2022-09-28] MEDS: CHOLECALCIFEROL 5,000 UNIT TABLET PO SCH (08:28)
[2022-09-28] MEDS: FOLIC ACID 1 MG TABLET PO SCH ×2 (08:28→21:46)
[2022-09-28] MEDS: GABAPENTIN 300 MG CAPSULE PO SCH ×3 (08:28→21:47)
[2022-09-28] MEDS: CYPROHEPTADINE 4 MG TABLET PO SCH ×3 (08:28→21:47)
[2022-09-28] MEDS ORDERED: FUROSEMIDE 20 MG/2 ML VIAL IV ONE (08:31)
[2022-09-28] MEDS: SODIUM HYPOCHLORITE 0.25% IRRIG 473 ML BOTTLE TOP SCH (09:01)
[2022-09-28] MEDS: cefTRIAXone 1,000 MG in SODIUM CHLORIDE 0.9% 100 ML IV SCH (09:01)
[2022-09-28] MEDS: AZITHROMYCIN 250 MG TABLET PO SCH (09:32)
[2022-09-28] MEDS: ENOXAPARIN 40 MG/0.4 ML SYRINGE SUBCUT SCH (13:38)
[2022-09-28] MEDS: MORPHINE 2 MG/1 ML SYRINGE IV PRN ×2 (17:12→23:23)
[2022-09-29] MEDS: ALBUTEROL/IPRATROPIUM 3 ML NEB RESP TX SCH ×6 (03:10→23:58)
[2022-09-29] MEDS: methylPREDNISolone SOD SUC 40 MG/1 ML VIAL IV SCH ×2 (06:13→16:18)
[2022-09-29] MEDS: cefTRIAXone 1,000 MG in SODIUM CHLORIDE 0.9% 100 ML IV SCH (08:22)
[2022-09-29] MEDS: AZITHROMYCIN 250 MG TABLET PO SCH (08:23)
[2022-09-29] MEDS: rOPINIRole 0.25 MG TABLET PO SCH ×2 (08:23→20:42)
[2022-09-29] MEDS: CYPROHEPTADINE 4 MG TABLET PO SCH ×3 (08:23→20:44)
[2022-09-29] MEDS: TAMSULOSIN 0.4 MG CAPSULE PO SCH ×2 (08:24→20:40)
[2022-09-29] MEDS: FERROUS SULFATE 325 MG TABLET PO SCH ×2 (08:24→20:40)
[2022-09-29] MEDS: CITALOPRAM 20 MG TABLET PO SCH (08:24)
[2022-09-29] MEDS: FOLIC ACID 1 MG TABLET PO SCH ×2 (08:24→20:40)
[2022-09-29] MEDS: PANTOPRAZOLE 40 MG TABLET PO SCH (08:24)
[2022-09-29] MEDS: DOCUSATE SODIUM 100 MG CAPSULE PO SCH ×2 (08:24→20:40)
[2022-09-29] MEDS: GABAPENTIN 300 MG CAPSULE PO SCH ×3 (08:24→20:40)
[2022-09-29] MEDS: SODIUM HYPOCHLORITE 0.25% IRRIG 473 ML BOTTLE TOP SCH (08:25)
[2022-09-29] MEDS: CHOLECALCIFEROL 5,000 UNIT TABLET PO SCH (08:27)
[2022-09-29] MEDS ORDERED: FUROSEMIDE 40 MG/4 ML VIAL IV ONE (09:18)
[2022-09-29] MEDS: METOPROLOL SUCCINATE XL 25 MG TABLET PO SCH ×2 (09:38→20:43)
[2022-09-29] MEDS: ENOXAPARIN 40 MG/0.4 ML SYRINGE SUBCUT SCH (09:38)
[2022-09-29] MEDS: LORazepam 1 MG TABLET PO PRN (20:41)
[2022-09-30] MEDS: ALBUTEROL/IPRATROPIUM 3 ML NEB RESP TX SCH ×5 (02:37→19:12)
[2022-09-30] MEDS: methylPREDNISolone SOD SUC 40 MG/1 ML VIAL IV SCH ×2 (04:17→16:57)
[2022-09-30 05:51] LABS: Hematocrit 31.8 VOL% (42.0-52.0); Hemoglobin 9.6 GM/DL (14.0-18.0); Immature Granulocytes Absolute 0.08 #; Lymphocytes # 1.6 10*3/uL (1.4-4.0); Lymphocytes % 19.5 % (21.2-54.2); Mean Corpuscular HGB Conc 30.2 GM/DL (32-36); Mean Corpuscular Volume 94.4 FL (87-102); Mean Platelet Volume 10.2 FL (9.6-12.0); Monocytes # 0.6 10*3/uL (0.11-0.8); Monocytes % 6.6 % (1.7-12.7); Neutrophils % 72.9 % (38.7-73.9); Platelet Count 344 T/CUMM (130-400); Red Blood Count 3.37 MC/CUMM (3.8-5.5); Red Cell Distribution Width 16.9 % (9.3-17.3); White Blood Count 8.4 T/CUMM (4-12)
[2022-09-30 06:22] LABS: Calcium 8.4 MG/DL (8.5-10.1); Osmolality,Calculated 285.3 MOS/KG (273-304); Potassium 4.1 MMOL/L (3.5-5.1)
[2022-09-30] MEDS: AZITHROMYCIN 250 MG TABLET PO SCH (09:20)
[2022-09-30] MEDS: METOPROLOL SUCCINATE XL 25 MG TABLET PO SCH ×2 (09:21→21:21)
[2022-09-30] MEDS: rOPINIRole 0.25 MG TABLET PO SCH ×2 (09:21→21:17)
[2022-09-30] MEDS: GABAPENTIN 300 MG CAPSULE PO SCH ×3 (09:21→21:17)
[2022-09-30] MEDS: FOLIC ACID 1 MG TABLET PO SCH ×2 (09:21→21:18)
[2022-09-30] MEDS: TAMSULOSIN 0.4 MG CAPSULE PO SCH ×2 (09:21→21:18)
[2022-09-30] MEDS: CYPROHEPTADINE 4 MG TABLET PO SCH ×3 (09:21→21:17)
[2022-09-30] MEDS: FERROUS SULFATE 325 MG TABLET PO SCH ×2 (09:21→21:18)
[2022-09-30] MEDS: CITALOPRAM 20 MG TABLET PO SCH (09:22)
[2022-09-30] MEDS: CHOLECALCIFEROL 5,000 UNIT TABLET PO SCH (09:22)
[2022-09-30] MEDS: DOCUSATE SODIUM 100 MG CAPSULE PO SCH ×2 (09:22→21:17)
[2022-09-30] MEDS: ENOXAPARIN 40 MG/0.4 ML SYRINGE SUBCUT SCH (09:22)
[2022-09-30] MEDS: cefTRIAXone 1,000 MG in SODIUM CHLORIDE 0.9% 100 ML IV SCH (09:23)
[2022-09-30] MEDS: SODIUM HYPOCHLORITE 0.25% IRRIG 473 ML BOTTLE TOP SCH (09:25)
[2022-09-30] MEDS: AMPICILLIN 500 MG CAPSULE PO SCH ×2 (15:37→21:16)
[2022-10-01] MEDS: ALBUTEROL/IPRATROPIUM 3 ML NEB RESP TX SCH ×7 (00:51→23:39)
[2022-10-01] MEDS: methylPREDNISolone SOD SUC 40 MG/1 ML VIAL IV SCH ×2 (05:00→17:42)
[2022-10-01 05:30] LABS: Basophils % 0.1 % (0.0-0.8); Hematocrit 35.3 VOL% (42.0-52.0); Hemoglobin 10.6 GM/DL (14.0-18.0); Immature Granulocytes % 2.3 %; Lymphocytes # 1.9 10*3/uL (1.4-4.0); Mean Corpuscular Volume 96.2 FL (87-102); Mean Platelet Volume 10.4 FL (9.6-12.0); Monocytes # 0.7 10*3/uL (0.11-0.8); Monocytes % 7.9 % (1.7-12.7); NRBC # 0.05 10*3/uL; Neutrophils % 67.7 % (38.7-73.9); Platelet Count 277 T/CUMM (130-400); Red Blood Count 3.67 MC/CUMM (3.8-5.5); Red Cell Distribution Width 16.7 % (9.3-17.3); White Blood Count 8.8 T/CUMM (4-12)
[2022-10-01 05:46] LABS: Calcium 8.3 MG/DL (8.5-10.1); Osmolality,Calculated 279.7 MOS/KG (273-304); Potassium 4.2 MMOL/L (3.5-5.1)
[2022-10-01] MEDS: rOPINIRole 0.25 MG TABLET PO SCH ×2 (08:31→21:20)
[2022-10-01] MEDS: GABAPENTIN 300 MG CAPSULE PO SCH ×3 (08:31→21:20)
[2022-10-01] MEDS: TAMSULOSIN 0.4 MG CAPSULE PO SCH ×2 (08:31→21:20)
[2022-10-01] MEDS: FERROUS SULFATE 325 MG TABLET PO SCH ×2 (08:32→21:20)
[2022-10-01] MEDS: CYPROHEPTADINE 4 MG TABLET PO SCH ×3 (08:32→21:20)
[2022-10-01] MEDS: CITALOPRAM 20 MG TABLET PO SCH (08:32)
[2022-10-01] MEDS: DOCUSATE SODIUM 100 MG CAPSULE PO SCH ×2 (08:32→21:19)
[2022-10-01] MEDS: METOPROLOL SUCCINATE XL 25 MG TABLET PO SCH ×2 (08:32→21:20)
[2022-10-01] MEDS: FOLIC ACID 1 MG TABLET PO SCH ×2 (08:32→21:20)
[2022-10-01] MEDS: LORazepam 1 MG TABLET PO PRN (08:32)
[2022-10-01] MEDS: CHOLECALCIFEROL 5,000 UNIT TABLET PO SCH (08:32)
[2022-10-01] MEDS: AMPICILLIN 500 MG CAPSULE PO SCH ×3 (10:55→21:19)
[2022-10-01] MEDS: ENOXAPARIN 40 MG/0.4 ML SYRINGE SUBCUT SCH (10:55)
[2022-10-01] MEDS ORDERED: ZIPRASIDONE 20 MG/1 ML VIAL IM ONE (15:51)
[2022-10-01] MEDS ORDERED: LORazepam 2 MG/1 ML VIAL IV PRN (23:08)
[2022-10-02] MEDS: ALBUTEROL/IPRATROPIUM 3 ML NEB RESP TX SCH ×6 (02:57→23:49)
[2022-10-02] MEDS: methylPREDNISolone SOD SUC 40 MG/1 ML VIAL IV SCH ×2 (04:51→16:21)
[2022-10-02 08:03] LABS: Basophils % 0.2 % (0.0-0.8); Eosinophils # 0.2 10*3/uL (0.0-0.87); Eosinophils % 1.4 % (0.00-10.9); Hematocrit 40.8 VOL% (42.0-52.0); Hemoglobin 12.4 GM/DL (14.0-18.0); Immature Granulocytes Absolute 0.23 #; Lymphocytes % 17.6 % (21.2-54.2); Mean Corpuscular HGB Conc 30.4 GM/DL (32-36); Mean Corpuscular Volume 95.6 FL (87-102); Mean Platelet Volume 9.5 FL (9.6-12.0); Monocytes # 0.8 10*3/uL (0.11-0.8); Monocytes % 6.5 % (1.7-12.7); NRBC # 0.07 10*3/uL; Neutrophils % 72.3 % (38.7-73.9); Platelet Count 334 T/CUMM (130-400); Red Blood Count 4.27 MC/CUMM (3.8-5.5); Red Cell Distribution Width 17.7 % (9.3-17.3); White Blood Count 11.6 T/CUMM (4-12)
[2022-10-02 08:29] LABS: Calcium 8.9 MG/DL (8.5-10.1); Osmolality,Calculated 289.8 MOS/KG (273-304); Potassium 3.6 MMOL/L (3.5-5.1)
[2022-10-02] MEDS: ENOXAPARIN 40 MG/0.4 ML SYRINGE SUBCUT SCH (09:07)
[2022-10-02] MEDS: CHOLECALCIFEROL 5,000 UNIT TABLET PO SCH (09:07)
[2022-10-02] MEDS: FOLIC ACID 1 MG TABLET PO SCH ×2 (09:07→21:02)
[2022-10-02] MEDS: CITALOPRAM 20 MG TABLET PO SCH (09:07)
[2022-10-02] MEDS: TAMSULOSIN 0.4 MG CAPSULE PO SCH ×2 (09:07→21:02)
[2022-10-02] MEDS: CYPROHEPTADINE 4 MG TABLET PO SCH ×3 (09:07→21:02)
[2022-10-02] MEDS: FERROUS SULFATE 325 MG TABLET PO SCH ×2 (09:08→21:02)
[2022-10-02] MEDS: FUROSEMIDE 40 MG TABLET PO SCH (09:08)
[2022-10-02] MEDS: METOPROLOL SUCCINATE XL 25 MG TABLET PO SCH ×2 (09:08→21:02)
[2022-10-02] MEDS: GABAPENTIN 300 MG CAPSULE PO SCH ×3 (09:08→21:02)
[2022-10-02] MEDS: rOPINIRole 0.25 MG TABLET PO SCH ×2 (09:08→21:02)
[2022-10-02] MEDS: AMPICILLIN 500 MG CAPSULE PO SCH ×3 (09:08→21:02)
[2022-10-02] MEDS: DOCUSATE SODIUM 100 MG CAPSULE PO SCH ×2 (10:11→21:02)
[2022-10-02] MEDS ORDERED: ENOXAPARIN 40 MG/0.4 ML SYRINGE SUBCUT ONE (13:00)
[2022-10-02] MEDS: ENOXAPARIN 80 MG/0.8 ML SYRINGE SUBCUT SCH (21:04)
[2022-10-03] MEDS: ALBUTEROL/IPRATROPIUM 3 ML NEB RESP TX SCH ×6 (03:21→23:02)
[2022-10-03] MEDS: methylPREDNISolone SOD SUC 40 MG/1 ML VIAL IV SCH ×2 (05:14→17:25)
[2022-10-03 05:17] LABS: Basophils % 0.1 % (0.0-0.8); Eosinophils % 0.3 % (0.00-10.9); Hematocrit 33.8 VOL% (42.0-52.0); Hemoglobin 10.6 GM/DL (14.0-18.0); Immature Granulocytes % 2.3 %; Immature Granulocytes Absolute 0.23 #; Lymphocytes # 2.2 10*3/uL (1.4-4.0); Lymphocytes % 21.6 % (21.2-54.2); Mean Corpuscular HGB Conc 31.4 GM/DL (32-36); Mean Corpuscular Volume 91.6 FL (87-102); Monocytes # 0.4 10*3/uL (0.11-0.8); Monocytes % 4.2 % (1.7-12.7); NRBC # 0.03 10*3/uL; Neutrophils % 71.5 % (38.7-73.9); Platelet Count 299 T/CUMM (130-400); Red Blood Count 3.69 MC/CUMM (3.8-5.5); Red Cell Distribution Width 17.7 % (9.3-17.3); White Blood Count 10.2 T/CUMM (4-12)
[2022-10-03 05:36] LABS: Calcium 8.1 MG/DL (8.5-10.1); Potassium 4.2 MMOL/L (3.5-5.1)
[2022-10-03] MEDS: CYPROHEPTADINE 4 MG TABLET PO SCH ×2 (09:22→17:25)
[2022-10-03] MEDS: FOLIC ACID 1 MG TABLET PO SCH ×2 (09:22→21:08)
[2022-10-03] MEDS: AMPICILLIN 500 MG CAPSULE PO SCH ×2 (09:22→17:25)
[2022-10-03] MEDS: TAMSULOSIN 0.4 MG CAPSULE PO SCH ×2 (09:23→21:08)
[2022-10-03] MEDS: rOPINIRole 0.25 MG TABLET PO SCH ×2 (09:23→21:07)
[2022-10-03] MEDS: FERROUS SULFATE 325 MG TABLET PO SCH ×2 (09:23→21:07)
[2022-10-03] MEDS: CHOLECALCIFEROL 5,000 UNIT TABLET PO SCH (09:23)
[2022-10-03] MEDS: GABAPENTIN 300 MG CAPSULE PO SCH ×3 (09:23→21:08)
[2022-10-03] MEDS: DOCUSATE SODIUM 100 MG CAPSULE PO SCH ×2 (09:24→21:08)
[2022-10-03] MEDS: METOPROLOL SUCCINATE XL 25 MG TABLET PO SCH ×2 (09:24→21:08)
[2022-10-03] MEDS: CITALOPRAM 20 MG TABLET PO SCH (09:25)
[2022-10-03] MEDS: FUROSEMIDE 40 MG TABLET PO SCH (09:25)
[2022-10-03] MEDS: ENOXAPARIN 80 MG/0.8 ML SYRINGE SUBCUT SCH ×2 (09:26→21:45)
[2022-10-04] MEDS: AMPICILLIN 500 MG CAPSULE PO SCH ×4 (01:49→20:57)
[2022-10-04] MEDS: CYPROHEPTADINE 4 MG TABLET PO SCH ×4 (01:49→20:57)
[2022-10-04] MEDS: ALBUTEROL/IPRATROPIUM 3 ML NEB RESP TX SCH ×6 (03:30→23:55)
[2022-10-04 05:32] LABS: Basophils % 0.2 % (0.0-0.8); Hematocrit 35.6 VOL% (42.0-52.0); Hemoglobin 10.9 GM/DL (14.0-18.0); Immature Granulocytes % 3.2 %; Immature Granulocytes Absolute 0.34 #; Lymphocytes # 1.8 10*3/uL (1.4-4.0); Mean Corpuscular HGB Conc 30.6 GM/DL (32-36); Mean Corpuscular Volume 94.4 FL (87-102); Monocytes # 0.5 10*3/uL (0.11-0.8); Monocytes % 4.3 % (1.7-12.7); Neutrophils % 75.3 % (38.7-73.9); Platelet Count 301 T/CUMM (130-400); Red Blood Count 3.77 MC/CUMM (3.8-5.5); Red Cell Distribution Width 17.9 % (9.3-17.3); White Blood Count 10.6 T/CUMM (4-12)
[2022-10-04 05:49] LABS: Calcium 8.7 MG/DL (8.5-10.1); Osmolality,Calculated 287.3 MOS/KG (273-304); Potassium 4.8 MMOL/L (3.5-5.1)
[2022-10-04] MEDS: methylPREDNISolone SOD SUC 40 MG/1 ML VIAL IV SCH ×2 (06:15→16:48)
[2022-10-04] MEDS: ENOXAPARIN 80 MG/0.8 ML SYRINGE SUBCUT SCH (09:08)
[2022-10-04] MEDS: rOPINIRole 0.25 MG TABLET PO SCH ×2 (09:08→20:57)
[2022-10-04] MEDS: FERROUS SULFATE 325 MG TABLET PO SCH ×2 (09:08→20:56)
[2022-10-04] MEDS: METOPROLOL SUCCINATE XL 25 MG TABLET PO SCH ×2 (09:08→20:57)
[2022-10-04] MEDS: CHOLECALCIFEROL 5,000 UNIT TABLET PO SCH (09:09)
[2022-10-04] MEDS: TAMSULOSIN 0.4 MG CAPSULE PO SCH ×2 (09:09→20:57)
[2022-10-04] MEDS: FUROSEMIDE 40 MG TABLET PO SCH (09:09)
[2022-10-04] MEDS: DOCUSATE SODIUM 100 MG CAPSULE PO SCH ×2 (09:09→20:57)
[2022-10-04] MEDS: CITALOPRAM 20 MG TABLET PO SCH (09:09)
[2022-10-04] MEDS: GABAPENTIN 300 MG CAPSULE PO SCH ×3 (09:09→20:56)
[2022-10-04] MEDS: FOLIC ACID 1 MG TABLET PO SCH ×2 (09:09→20:57)
[2022-10-04] MEDS: ACETAMINOPHEN 325 MG TABLET PO PRN (18:18)
[2022-10-04] MEDS: APIXABAN 5 MG TABLET PO SCH (20:56)
[2022-10-05] MEDS: ALBUTEROL/IPRATROPIUM 3 ML NEB RESP TX SCH ×3 (03:20→11:30)
[2022-10-05] MEDS: methylPREDNISolone SOD SUC 40 MG/1 ML VIAL IV SCH (05:45)
[2022-10-05 05:55] LABS: Basophils % 0.2 % (0.0-0.8); Hematocrit 34.8 VOL% (42.0-52.0); Hemoglobin 10.6 GM/DL (14.0-18.0); Immature Granulocytes % 5.4 %; Lymphocytes # 2.1 10*3/uL (1.4-4.0); Lymphocytes % 16.5 % (21.2-54.2); Mean Corpuscular HGB Conc 30.5 GM/DL (32-36); Mean Corpuscular Volume 93.3 FL (87-102); Mean Platelet Volume 10.2 FL (9.6-12.0); Monocytes # 0.5 10*3/uL (0.11-0.8); Monocytes % 3.9 % (1.7-12.7); NRBC # 0.02 10*3/uL; Platelet Count 318 T/CUMM (130-400); Red Blood Count 3.73 MC/CUMM (3.8-5.5)
[2022-10-05 06:15] LABS: Calcium 8.5 MG/DL (8.5-10.1); Osmolality,Calculated 277.2 MOS/KG (273-304); Potassium 4.2 MMOL/L (3.5-5.1)
[2022-10-05 06:47] LABS: Anisocytosis 1+; Band Neutrophils 4 % (0-10); Lymphocytes 18 % (20-55); Macrocytosis 1+; Ovalocytes Few; Platelet Estimate Normal; Total Cells Counted 100
[2022-10-05] MEDS: GABAPENTIN 300 MG CAPSULE PO SCH (09:10)
[2022-10-05] MEDS: CITALOPRAM 20 MG TABLET PO SCH (09:10)
[2022-10-05] MEDS: FERROUS SULFATE 325 MG TABLET PO SCH (09:10)
[2022-10-05] MEDS: APIXABAN 5 MG TABLET PO SCH (09:10)
[2022-10-05] MEDS: CHOLECALCIFEROL 5,000 UNIT TABLET PO SCH (09:10)
[2022-10-05] MEDS: rOPINIRole 0.25 MG TABLET PO SCH (09:11)
[2022-10-05] MEDS: CYPROHEPTADINE 4 MG TABLET PO SCH (09:11)
[2022-10-05] MEDS: DOCUSATE SODIUM 100 MG CAPSULE PO SCH (09:11)
[2022-10-05] MEDS: FOLIC ACID 1 MG TABLET PO SCH (09:11)
[2022-10-05] MEDS: TAMSULOSIN 0.4 MG CAPSULE PO SCH (09:11)
[2022-10-05] MEDS: FUROSEMIDE 40 MG TABLET PO SCH (09:11)
[2022-10-05] MEDS: AMPICILLIN 500 MG CAPSULE PO SCH (09:11)
[2022-10-05] MEDS: METOPROLOL SUCCINATE XL 25 MG TABLET PO SCH (09:11)
[2022-10-05] MEDS: ACETAMINOPHEN 325 MG TABLET PO PRN (10:54)
[2022-10-05 11:28] VITALS: BP 111/63
[2022-10-05] MEDS ORDERED: AMOXICILLIN 500 MG CAPSULE PO SCH (12:00)
== END 2022-10-05 12:41 | DRG 853 ==
LOC: N.ED 10:55 → N.EDINP 12:06 → SUATTDRO 12:06 → N.EDINP 14:15 → N.3E 14:24 → N.CC 17:03 → N.3E 10-03 18:12
PROVIDERS: ADMIT Internal Medicine; ATTEND Internal Medicine